=== PATIENT | female | born 1975 | race Two or more races ===

== ENCOUNTER 2019-07-29 15:41 | Emergency (ER) | payer OTHER ==
[~2019-07-29] VITALS: Ht 172.7 cm; Wt 61.2 kg
[2019-07-29 15:51] VITALS: BP 131/73
[2019-07-29] MEDS: ACETAMINOPHEN ES 500 MG TABLET PO ONE (16:07)
[2019-07-29] MEDS ORDERED: ACETAMINOPHEN ES 500 MG TABLET ONE (16:21)
== END 2019-07-29 17:36 ==
LOC: ER 15:42
DX: S80.02XA Contusion of left knee, initial encounter (principal); S50.02XA Contusion of left elbow, initial encounter; S60.222A Contusion of left hand, initial encounter; D68.59 Other primary thrombophilia; F12.10 Cannabis abuse, uncomplicated; Z88.6 Allergy status to analgesic agent; Z59.0 Homelessness; Z23 Encounter for immunization; Z86.718 Personal history of other venous thrombosis and embolism; Y08.89XA Assault by other specified means, initial encounter; Y93.89 Activity, other specified; Y92.89 Other specified places as the place of occurrence of the external cause; Y99.8 Other external cause status
CPT/HCPCS: 73080-TC; 73130-TC; 73564-TC

== ENCOUNTER 2019-10-31 22:55 | Emergency (ER) | payer OTHER ==
[~2019-10-31] VITALS: Ht 170.2 cm; Wt 60.3 kg
--- NOTE | 2019-10-31 23:38 | NUR ---
PT PRESENTED TO THE ER WITH A C/O UPPER MIDDLE CHEST PAIN WITH SOFT LUMP AND REDNESS NOTED, LT SHOULDER PAIN W/PALPATION, SORE THROAT AND COUGH W/CONGESTION. PT STATED THAT SHE "FEELS TIGHT". PT WAS PLACED ON THE MONITOR AND CONTINUOUS PULSE OX. PT IS 95-96% ON RA. PT IS A SMOKER.
[2019-10-31] MEDS ORDERED: ALBUTEROL FS 2.5 MG/3 ML VIAL.NEB ONE (23:58)
[2019-10-31 23:59] LABS: BASOPHILS # (AUTO) 0.1 /CMM (0.0-0.2); BASOPHILS % (AUTO) 0.9 % (0.0-2.0); EOSINOPHILS % (AUTO) 1.8 % (0.0-6.0); HEMATOCRIT 34 % (33-45); HEMOGLOBIN 11.3 g/dL (11.5-14.8); LYMPHOCYTES # (AUTO) 1.7 /CMM (0.8-4.8); LYMPHOCYTES % (AUTO) 19.8 % (20.0-44.0); MEAN CORPUSCULAR HGB CONC 33 g/dl (31.0-36.0); MEAN CORPUSCULAR VOLUME 82 fL (82-100); MONOCYTES # (AUTO) 0.8 /CMM (0.1-1.30); NEUTROPHILS # (AUTO) 5.8 /CMM (1.8-8.9); NEUTROPHILS % (AUTO) 68.5 % (43.0-81.0); PLATELET COUNT (AUTO) 428 /CMM (150-450); RED BLOOD CELL COUNT(AUTO) 4.12 MIL/uL (4.0-5.2); WHITE BLOOD COUNT (AUTO) 8.5 K/uL (4.3-11.0)
[2019-11-01] MEDS ORDERED: IV NS 0.9% 1,000 ML BAG IV ONE
[2019-11-01] MEDS ORDERED: ALBUTEROL FS 2.5 MG/3 ML VIAL.NEB NEB ONE
[2019-11-01 00:06] LABS: CALCIUM, SERUM 8.5 mg/dL (8.5-10.1); POTASSIUM 3.3 mmol/L (3.5-5.1)
--- NOTE | 2019-11-01 00:07 | NUR ---
BREATHING TX IN PROGRESS AT THE BEDSIDE.
[2019-11-01] MEDS ORDERED: ACETAMINOPHEN 325 MG TABLET ONE (00:57)
[2019-11-01] MEDS ORDERED: ACETAMINOPHEN 325 MG TABLET PO ONE (01:00)
--- NOTE | 2019-11-01 01:12 | NUR ---
IV removed. Catheter intact and site benign. Pressure and 4x4 applied to site. No bleeding noted. Patient discharged to home in stable condition. Written and verbal after care instructions given. Patient verbalizes understanding of instruction AND RX. PT AMBULATED OUT WITH A STEADY GAIT. VSS.
[2019-11-01 01:14] VITALS: BP 95/86
== END 2019-11-01 01:14 | disposition home or self-care (01) ==
LOC: ER 22:55
DX: J20.9 Acute bronchitis, unspecified (principal); L03.313 Cellulitis of chest wall; L03.114 Cellulitis of left upper limb; F17.210 Nicotine dependence, cigarettes, uncomplicated; R00.0 Tachycardia, unspecified; Z59.0 Homelessness; Z88.6 Allergy status to analgesic agent; Z60.2 Problems related to living alone; Z86.718 Personal history of other venous thrombosis and embolism
CPT/HCPCS: 36415; 71045; 80048; 85025; 93005; 94640; 99285; 99406; J7030

== ENCOUNTER 2020-04-16 14:22 | Emergency (ER) | payer OTHER ==
[~2020-04-16] VITALS: Ht 172.7 cm; Wt 52.6 kg
[2020-04-16] MEDS ORDERED: ONDANSETRON HCL/PF 4 MG/2 ML VIAL ONE (14:31)
[2020-04-16 14:51] LABS: BILIRUBIN,URINE SMALL (NEGATIVE); BLOOD, URINE Moderate Ery/uL (NEGATIVE); COLOR,URINE Yellow (YELLOW); KETONES,URINE Negative (NEGATIVE); LEUKOCYTE ESTERASE ,URINE Trace (NEGATIVE); NITRITE, URINE Negative (NEGATIVE); PH,URINE 5.5 (5.0-8.0); PROTEIN,URINE 100 mg/dl (NEGATIVE); UGLUCOSE Negative (NEGATIVE); UROBILINOGEN,URINE 0.2 EU/dL (0.2)
[2020-04-16 14:52] LABS: BASOPHILS % (AUTO) 0.3 % (0.0-2.0); HEMATOCRIT 38 % (33-45); HEMOGLOBIN 12.5 g/dL (11.5-14.8); LYMPHOCYTES # (AUTO) 1.5 /CMM (0.8-4.8); LYMPHOCYTES % (AUTO) 15.8 % (20.0-44.0); MEAN CORPUSCULAR HGB CONC 33 g/dl (31.0-36.0); MEAN CORPUSCULAR VOLUME 83 fL (82-100); MONOCYTES # (AUTO) 0.5 /CMM (0.1-1.30); MONOCYTES % (AUTO) 5.4 % (2.0-12.0); NEUTROPHILS # (AUTO) 4.8 /CMM (1.8-8.9); NEUTROPHILS % (AUTO) 52.3 % (43.0-81.0); PLATELET COUNT (AUTO) 233 /CMM (150-450); RED BLOOD CELL COUNT(AUTO) 4.59 MIL/uL (4.0-5.2); WHITE BLOOD COUNT (AUTO) 9.2 K/uL (4.3-11.0)
[2020-04-16] MEDS: ONDANSETRON HCL/PF 4 MG/2 ML VIAL IVP ONE (14:52)
[2020-04-16] MEDS: IV NS 0.9% 1,000 ML BAG IV ONE (14:52)
[2020-04-16 14:53] LABS: EOSINOPHILS % (AUTO) 26.2 % (0.0-6.0)
[2020-04-16 14:53] LABS: APPEARANCE,URINE CLOUDY (CLEAR)
--- NOTE | 2020-04-16 14:53 | NUR ---
"Abdominal pain/nausea/vomiting/brown liquid diarrhea x3days". PT AAOX4, VSS. RR EVEN & UNLBORED. DENIES CP, SOB, DIZZINESS AT THIS TIME. PT SEEN & EVAL'D BY DR. PAUL. MEDICATED PER ERMD ORDER, PT MEMO WELL. WILL CONT TO MONITOR.
[2020-04-16 14:54] LABS: BACTERIA,URINE Few /HPF (None Seen); SQUAMOUS EPITHELIAL CELL,UR Few /HPF (None Seen); URINE AMORPHOUS URATE Few /HPF (None Seen)
[2020-04-16 15:41] LABS: EOSINOPHILS % (MANUAL) 24 % (0-4); LYMPHOCYTES % (MANUAL) 15 % (16-48); MONOCYTES % (MANUAL) 7 % (0-11.0); NEUTROPHILS % (MANUAL) 54 (42-76)
[2020-04-16 15:43] LABS: CALCIUM, SERUM 8.7 mg/dL (8.5-10.1); CREATININE 0.9 mg/dL (0.6-1.3); POTASSIUM 3.2 mmol/L (3.5-5.1)
[2020-04-16 15:50] LABS: ALBUMIN 3.3 g/dL (3.4-5.0); BILIRUBIN,DIRECT 0.1 mg/dL (0.0-0.2); BILIRUBIN,TOTAL 0.4 mg/dL (0.2-1.0); TOTAL PROTEIN, SERUM 7.2 g/dL (6.4-8.2)
--- NOTE | 2020-04-16 15:56 | NUR ---
PT TO CT VIA [facility].
[2020-04-16] MEDS ORDERED: LIDOCAINE VISCOUS 2% UD 15 ML UDC ONE (16:21)
[2020-04-16] MEDS ORDERED: FAMOTIDINE/PF INJ 20 MG/2 ML VIAL IV ONE (16:21)
[2020-04-16] MEDS ORDERED: MAG HYDROX/AL HYDROX/SIMETH 30 ML UDC ONE (16:21)
[2020-04-16] MEDS: MAG HYDROX/AL HYDROX/SIMETH 30 ML UDC PO ONE (16:26)
[2020-04-16] MEDS: LIDOCAINE VISCOUS 2% UD 15 ML UDC MM ONE (16:26)
[2020-04-16] MEDS: FAMOTIDINE/PF INJ 20 MG/2 ML VIAL IV ONE (16:26)
--- NOTE | 2020-04-16 18:04 | NUR ---
IV removed. Catheter intact and site benign. Pressure and 4x4 applied to site. No bleeding noted.Patient discharged to home in stable condition. Written and verbal after care instructions given. Patient verbalizes understanding of instruction.
[2020-04-16 18:20] VITALS: BP 118/74
== END 2020-04-16 18:21 | disposition home or self-care (01) ==
LOC: ER 14:23
DX: R11.2 Nausea with vomiting, unspecified (principal); R19.7 Diarrhea, unspecified; R10.13 Epigastric pain; D72.1 Eosinophilia; Z86.73 Personal history of transient ischemic attack (TIA), and cerebral infarction without residual deficits; Z98.51 Tubal ligation status; Z88.6 Allergy status to analgesic agent; Z60.2 Problems related to living alone
CPT/HCPCS: 36415; 74176; 80048; 80076; 81001; 83690; 85025; 87086; 96361; 96374; 96375; 99284; J2405; J3490; J7030; 81000-TC